=== PATIENT | female | born 1970 | race Caucasian/White ===

== ENCOUNTER → 2016-11-16 | Outpatient (REF) | payer OTHER | LOC: M LAB REF 13:53 | PROVIDERS: ATTEND Internal Medicine Gastroenterology | DX: K51.90 Ulcerative colitis, unspecified, without complications (principal); R10.9 Unspecified abdominal pain ==

== ENCOUNTER → 2017-01-18 | Outpatient (REF) | payer OTHER ==
[2017-01-18 13:12] LABS: MEAN CORPUSCULAR HEMOGLOBIN 29.6 pg (27.0-33.0); MEAN CORPUSCULAR HGB CONC 33.3 g/dl (32.0-36.5); RED CELL DISTRIBUTION WIDTH 12.6 % (11.5-14.5)
[2017-01-18 13:39] LABS: ALBUMIN 3.8 GM/DL (3.2-5.2); ALBUMIN/GLOBULIN RATIO 1.12 (1.00-1.93); ALKALINE PHOSPHATASE 86 U/L (45-117); ALT/SGPT 21 U/L (12-78); ANION GAP 7 MEQ/L (8-16); AST/SGOT 19 U/L (15-37); BILIRUBIN,TOTAL 0.6 MG/DL (0.2-1.0); BLOOD UREA NITROGEN 12 MG/DL (7-18); CALCIUM LEVEL 9.2 MG/DL (8.5-10.1); CARBON DIOXIDE LEVEL 26 MEQ/L (21-32); CHLORIDE LEVEL 105 MEQ/L (98-107); CREATININE FOR GFR 0.59 MG/DL (0.55-1.02); GLOMERULAR FILTRATION RATE > 60.0 (>58); GLUCOSE, FASTING 92 MG/DL (70-105); POTASSIUM SERUM 4.3 MEQ/L (3.5-5.1); SODIUM LEVEL 138 MEQ/L (136-145); TOTAL PROTEIN 7.2 GM/DL (6.4-8.2)
== END ==
LOC: M SFHCPLAZ 10:19
PROVIDERS: ATTEND Nurse Practitioner Adult Health
DX: Z00.00 Encounter for general adult medical examination without abnormal findings (principal); E55.9 Vitamin D deficiency, unspecified

== ENCOUNTER → 2017-03-05 | Outpatient (CLI) | payer OTHER ==
[2017-03-05 14:16] LABS: BASO % 0.8 % (0.0-1.0); EOS # 0.2 K/mm3 (0.0-0.50); EOS % 3.3 % (0.0-3.0); LARGE UNSTAINED CELL # 0.1 K/mm3 (0.0-0.4); LYMPH # 1.2 K/mm3 (1.5-4.5); LYMPH % 22.1 % (24.0-44.0); MEAN CORPUSCULAR HEMOGLOBIN 29.4 pg (27.0-33.0); MEAN CORPUSCULAR VOLUME 89.1 fl (80.0-96.0); MONO # 0.4 K/mm3 (0.0-0.8); MONO % 7.1 % (0.0-5.0); NEUTROPHILS # 3.3 K/mm3 (1.8-7.7); NEUTROPHILS % 65.8 % (36.0-66.0); PLATELET COUNT, AUTOMATED 259 k/mm3 (150-450); RED CELL DISTRIBUTION WIDTH 12.7 % (11.5-14.5)
[2017-03-05 14:53] LABS: ALBUMIN 3.5 GM/DL (3.2-5.2); ALBUMIN/GLOBULIN RATIO 0.97 (1.00-1.93); ALKALINE PHOSPHATASE 85 U/L (45-117); ALT/SGPT 24 U/L (12-78); ANION GAP 9 MEQ/L (8-16); AST/SGOT 20 U/L (15-37); BILIRUBIN,TOTAL 0.6 MG/DL (0.2-1.0); BLOOD UREA NITROGEN 10 MG/DL (7-18); CALCIUM LEVEL 8.5 MG/DL (8.5-10.1); CARBON DIOXIDE LEVEL 25 MEQ/L (21-32); CHLORIDE LEVEL 107 MEQ/L (98-107); CREATININE FOR GFR 0.51 MG/DL (0.55-1.02); GLOMERULAR FILTRATION RATE > 60.0 (>58); GLUCOSE, FASTING 83 MG/DL (70-105); POTASSIUM SERUM 4.1 MEQ/L (3.5-5.1); SODIUM LEVEL 141 MEQ/L (136-145); TOTAL PROTEIN 7.1 GM/DL (6.4-8.2)
[2017-03-08 00:06] LABS: Lyme Disease IgG Ab 18 kDa Ban Present (.); Lyme Disease IgG Ab 23 kDa Ban Present (.); Lyme Disease IgG Ab 28 kDa Ban Absent (.); Lyme Disease IgG Ab 30 kDa Ban Present (.); Lyme Disease IgG Ab 39 kDa Ban Present (.); Lyme Disease IgG Ab 41 kDa Ban Present (.); Lyme Disease IgG Ab 45 kDa Ban Present (.); Lyme Disease IgG Ab 58 kDa Ban Present (.); Lyme Disease IgG Ab 66 kDa Ban Present (.); Lyme Disease IgG Ab 93 kDa Ban Absent (.); Lyme Disease IgG West Blot Int Positive (.); Lyme Disease IgG/IgM Antibodie 1.76 ISR (0.00-0.90); Lyme Disease IgM Ab 23 kDa Ban Present (.); Lyme Disease IgM Ab 39 kDa Ban Present (.); Lyme Disease IgM Ab 41 kDa Ban Present (.); Lyme Disease IgM Ab Quantitati 5.02 index (0.00-0.79); Lyme Disease IgM West Blot Int Positive (.)
== END ==
LOC: M WUC 10:07
PROVIDERS: ATTEND Physician Assistant
DX: M79.602 Pain in left arm (principal)

== ENCOUNTER 2017-09-15 11:05 | Day surgery (SDC) | payer OTHER ==
[2017-09-15] MEDS: NS 1,000 ML IV ×2 (11:15→11:35)
[2017-09-15] MEDS ORDERED: PROPOFOL 200 MG/20 ML VIAL As Ordered (12:22)
== END 2017-09-15 13:17 | disposition home or self-care (01) ==
LOC: M OPP 11:05
DX: K51.90 Ulcerative colitis, unspecified, without complications (principal); K50.90 Crohn's disease, unspecified, without complications; R10.9 Unspecified abdominal pain; R19.7 Diarrhea, unspecified; K64.0 First degree hemorrhoids; R00.8 Other abnormalities of heart beat; G43.909 Migraine, unspecified, not intractable, without status migrainosus; J45.909 Unspecified asthma, uncomplicated; R06.83 Snoring; Z79.899 Other long term (current) drug therapy; Z79.52 Long term (current) use of systemic steroids
CPT/HCPCS: 45380

== ENCOUNTER → 2017-09-16 | Outpatient (CLI) | payer OTHER ==
[2017-09-16 17:39] LABS: HEMOGLOBIN 13.5 g/dl (12.0-16.0); MEAN CORPUSCULAR HEMOGLOBIN 28.1 pg (27.0-33.0); MEAN CORPUSCULAR HGB CONC 31.4 g/dl (32.0-36.5); MEAN CORPUSCULAR VOLUME 89.4 fl (80.0-96.0); PLATELET COUNT, AUTOMATED 320 10^3/uL (150-450); RED BLOOD COUNT 4.81 10^6/uL (4.00-5.40); RED CELL DISTRIBUTION WIDTH 13.3 % (11.5-14.5); WHITE BLOOD COUNT 7.4 10^3/uL (4.0-10.0)
[2017-09-16 17:44] LABS: ALBUMIN 3.5 GM/DL (3.2-5.2); ALBUMIN/GLOBULIN RATIO 1.06 (1.00-1.93); ALKALINE PHOSPHATASE 73 U/L (45-117); ALT/SGPT 17 U/L (12-78); ANION GAP 8 MEQ/L (8-16); AST/SGOT 11 U/L (7-37); BILIRUBIN,DIRECT < 0.1 MG/DL (0.0-0.2); BILIRUBIN,TOTAL 0.3 MG/DL (0.2-1.0); BLOOD UREA NITROGEN 9 MG/DL (7-18); CALCIUM LEVEL 8.8 MG/DL (8.5-10.1); CARBON DIOXIDE LEVEL 27 MEQ/L (21-32); CHLORIDE LEVEL 105 MEQ/L (98-107); CREATININE FOR GFR 0.69 MG/DL (0.55-1.30); GLOMERULAR FILTRATION RATE > 60.0 (>58); GLUCOSE, FASTING 79 MG/DL (70-100); POTASSIUM SERUM 4.2 MEQ/L (3.5-5.1); SODIUM LEVEL 140 MEQ/L (136-145); TOTAL PROTEIN 6.8 GM/DL (6.4-8.2)
== END ==
LOC: M WUC 09:16
DX: K51.90 Ulcerative colitis, unspecified, without complications (principal); R10.13 Epigastric pain; R10.9 Unspecified abdominal pain

== ENCOUNTER → 2017-09-19 | Outpatient (CLI) | payer OTHER ==
[~2017-09-19] MED LIST: GASTROGRAFIN SOLUTION 30ML (Q9963) As Ordered; ISOVUE-370 76% 100ML VIAL (Q9967) As Ordered
== END ==
LOC: M RAD 16:26
DX: K51.90 Ulcerative colitis, unspecified, without complications (principal); R10.13 Epigastric pain; K57.30 Diverticulosis of large intestine without perforation or abscess without bleeding; D73.4 Cyst of spleen
CPT/HCPCS: Q9963

== ENCOUNTER → 2017-09-20 | Outpatient (CLI) | payer OTHER | LOC: M RAD 06:59 | DX: R10.13 Epigastric pain (principal); K51.90 Ulcerative colitis, unspecified, without complications | CPT/HCPCS: 76705 ==

== ENCOUNTER 2017-11-01 11:50 | Day surgery (SDC) | payer OTHER ==
[~2017-11-01 11:50] MED LIST changes: -GASTROGRAFIN SOLUTION 30ML (Q9963) As Ordered; -ISOVUE-370 76% 100ML VIAL (Q9967) As Ordered; +LIDOCAINE 2% MDV 20 ML VIAL As Ordered; +PROPOFOL 200 MG/20 ML VIAL As Ordered
== END 2017-11-01 13:10 | disposition home or self-care (01) ==
LOC: M OPP 11:50
DX: R10.13 Epigastric pain (principal); R00.8 Other abnormalities of heart beat; K51.90 Ulcerative colitis, unspecified, without complications; K50.90 Crohn's disease, unspecified, without complications; G43.909 Migraine, unspecified, not intractable, without status migrainosus; J45.909 Unspecified asthma, uncomplicated; R06.83 Snoring; Z86.19 Personal history of other infectious and parasitic diseases; Z79.899 Other long term (current) drug therapy
CPT/HCPCS: 43239

== ENCOUNTER → 2019-07-06 | Outpatient (CLI) | payer OTHER ==
[~2019-07-06] MED LIST changes: +BENT10CA PO; +CALC500T49 PO; +GLUC1CAP10 PO; +LIAL1.2T PO; -LIDOCAINE 2% MDV 20 ML VIAL As Ordered; +MULT1TAB10 PO; +OMEP40CA97 PO; +PRED10TA2 PO; -PROPOFOL 200 MG/20 ML VIAL As Ordered; +VITA500046 PO; +VITA500T PO
--- NOTE | 2019-07-06 09:28 | REP ---
Clinical: Pain . Technique: AP, lateral, bilateral oblique views of the right elbow. Findings: No definite acute fractures appreciated. However, there is subtle elevation to the anterior fat pad suggesting the possibility of underlying occult injury. Clinical correlation and follow up is recommended. Impression: Elevation to the anterior fat pad without obvious acute fracture. Findings suggest possible occult injury. Electronically Signed by Jose Luis Cook MD 07/06/2019 09:19 A
== END ==
LOC: M WUC 09:09
PROVIDERS: ATTEND Physician Assistant
DX: M25.521 Pain in right elbow (principal)

== ENCOUNTER → 2020-02-24 | Outpatient (REF) | payer OTHER ==
[~2020-02-24] MED LIST changes: +VITA-243 PO; -VITA500T PO
[2020-04-20 23:31] LABS: ALBUMIN 3.7 GM/DL (3.2-5.2); ALT/SGPT 22 U/L (12-78); BILIRUBIN,TOTAL 0.3 MG/DL (0.2-1.0); BLOOD UREA NITROGEN 11 MG/DL (7-18); CALCIUM LEVEL 9.9 MG/DL (8.5-10.1); CARBON DIOXIDE LEVEL 28 MEQ/L (21-32); CHLORIDE LEVEL 105 MEQ/L (98-107); CREATININE FOR GFR 0.68 MG/DL (0.55-1.30); GLOMERULAR FILTRATION RATE > 60.0 (>51); GLUCOSE, FASTING 81 MG/DL (70-100); POTASSIUM SERUM 4.6 MEQ/L (3.5-5.1); SODIUM LEVEL 137 MEQ/L (136-145); TOTAL PROTEIN 7.4 GM/DL (6.4-8.2)
== END ==
LOC: M PLALAB 15:18
PROVIDERS: ATTEND Internal Medicine Gastroenterology
DX: Z00.00 Encounter for general adult medical examination without abnormal findings (principal); Z13.9 Encounter for screening, unspecified

== ENCOUNTER → 2020-11-12 | Outpatient (CLI) | payer OTHER ==
--- NOTE | 2020-11-12 16:09 | REPPI ---
INDICATION: J45.21 EXACERBATION OF INTERMITTENT ASTHMA. COMPARISON: Comparison chest x-ray is from November 05, 2007. TECHNIQUE: Two views.. FINDINGS: The lungs are well inflated and free of infiltrate. The pleural angles are sharp. The heart size is normal. Pulmonary vasculature is not increased. No significant bony abnormality is seen. IMPRESSION: Negative chest x-ray. <Electronically signed by Enrrique Lui > 11/12/20 [id number]
== END ==
LOC: M PLAIMG 15:32
PROVIDERS: ATTEND Physician Assistant
DX: J45.21 Mild intermittent asthma with (acute) exacerbation (principal)

== ENCOUNTER → 2022-02-03 | Outpatient (CLI) | payer OTHER ==
[~2022-02-03] MED LIST changes: +OMEP40CA4 PO; -OMEP40CA97 PO
== END ==
LOC: M PLAIMG 08:49
PROVIDERS: ATTEND Nurse Practitioner Adult Health
DX: M54.2 Cervicalgia (principal)

== ENCOUNTER → 2022-09-14 | Outpatient (CLI) | payer OTHER | LOC: M WUC 15:43 | PROVIDERS: ATTEND Physician Assistant | DX: J20.9 Acute bronchitis, unspecified (principal); J45.21 Mild intermittent asthma with (acute) exacerbation ==

== ENCOUNTER → 2022-12-19 | Outpatient (REF) | payer OTHER | LOC: M LAB REF 10:17 | PROVIDERS: ATTEND Internal Medicine Gastroenterology | DX: R19.7 Diarrhea, unspecified (principal) ==

== ENCOUNTER 2022-12-23 10:07 | Emergency (ER) | payer OTHER ==
[~2022-12-23] VITALS: Ht 167.6 cm; Wt 74.6 kg
[2022-12-23] MEDS ORDERED: NS 1,000 ML IV ONE (11:55)
[2022-12-23] MEDS ORDERED: ONDANSETRON 4MG 2ML VIAL IV ONE (11:55)
[2022-12-23] MEDS ORDERED: ISOVUE-370 76% 100ML VIAL As Ordered ONE (12:57)
[2022-12-23] MEDS ORDERED: KCL 10MEQ/100ML SWI (KRUN) 10 MEQ in IV 1 EA IV ONE (13:00)
[2022-12-23 13:08] LABS: HEMATOCRIT 40.5 % (36.0-47.0); HEMOGLOBIN 12.9 g/dl (12.0-15.5); MEAN CORPUSCULAR HEMOGLOBIN 27.6 pg (27.0-33.0); MEAN CORPUSCULAR HGB CONC 31.9 g/dl (32.0-36.5); MEAN CORPUSCULAR VOLUME 86.5 fl (80.0-96.0); PLATELET COUNT, AUTOMATED 428 10^3/uL (150-450); RED BLOOD COUNT 4.68 10^6/uL (4.00-5.40); WHITE BLOOD COUNT 8.4 10^3/uL (4.0-10.0)
[2022-12-23] MEDS ORDERED: methylPREDNISolone 125MG 2ML VIAL IV ONE (13:15)
[2022-12-23 13:36] LABS: ALBUMIN 2.8 G/DL (3.2-5.2); BILIRUBIN,DIRECT 0.1 MG/DL (<0.4); BILIRUBIN,TOTAL 0.5 MG/DL (0.3-1.2); TOTAL PROTEIN 6.8 G/DL (5.7-8.2)
[2022-12-23 14:01] LABS: ATYPICAL LYMPH 4 % (0-5); BASOPHILS 1 % (0-1); EOSINOPHILS 1 % (0-3); LYMPHOCYTES 21 % (16-44); MONOCYTES 10 % (0-5); NEUTROPHILS 56 % (28-66)
[2022-12-23 14:02] LABS: PLATELET ESTIMATE INCREASED (NORMAL)
[2022-12-23 16:14] VITALS: BP 128/73; TEMP 97.5; O2SAT 94
== END 2022-12-23 16:29 | disposition home or self-care (01) ==
LOC: M ED 10:07
DX: K51.90 Ulcerative colitis, unspecified, without complications (principal); E86.0 Dehydration; Z79.899 Other long term (current) drug therapy; Z79.52 Long term (current) use of systemic steroids
CPT/HCPCS: 74177; 80047; 80076; 81001; 83605; 83690; 84702; 85025; 87040; 96365; 96366; 96375; 99284; J2405; J2930; Q9967

== ENCOUNTER → 2023-01-20 | Outpatient (CLI) | payer OTHER ==
[~2023-01-20] VITALS: Ht 165.1 cm; Wt 72.0 kg
[~2023-01-20] MED LIST changes: +NS 1,000 ML IV SCH; +diphenhydrAMINE 25MG PO PRIOR TO INFUSION PO ONE; +inFLIXimab INJECTION 400 MG in NS 210 ML IV ONE
[2023-01-20 09:52] VITALS: BP 129/80; TEMP 98.1; O2SAT 94
[2023-01-20 10:30] VITALS: BP 109/69; TEMP 98.1; O2SAT 98
[2023-01-20 12:15] VITALS: BP 121/63; O2SAT 97
== END ==
LOC: M INFU 09:04
PROVIDERS: ATTEND Internal Medicine Gastroenterology
DX: K51.90 Ulcerative colitis, unspecified, without complications (principal)
CPT/HCPCS: 96413; 96415; J1745

== ENCOUNTER 2023-02-03 09:35 | Outpatient (CLI) | payer OTHER ==
[~2023-02-03] VITALS: Ht 167.6 cm; Wt 71.7 kg
[2023-02-03] VITALS (9 sets, daily range): BP systolic 108–122; BP diastolic 58–80; TEMP 97–97.9; O2SAT 97–100
[~2023-02-03 09:35] MED LIST changes: -inFLIXimab INJECTION 400 MG in NS 210 ML IV ONE
[2023-02-03] MEDS ORDERED: inFLIXimab INJECTION 400 MG in NS 210 ML IV ONE (09:45)
== END 2023-02-03 12:55 | disposition home or self-care (01) ==
LOC: M INFU 09:35
PROVIDERS: ATTEND Internal Medicine Gastroenterology
DX: K51.90 Ulcerative colitis, unspecified, without complications (principal)
CPT/HCPCS: 96413; 96415; J1745

== ENCOUNTER 2023-03-17 09:30 | Outpatient (CLI) | payer OTHER ==
[~2023-03-17] VITALS: Ht 165.1 cm; Wt 73.0 kg
[~2023-03-17 09:30] MED LIST changes: +CURRENT HEIGHT AND WEIGHT NEEDED ON PATIENT XX SCH; +diphenhydrAMINE 25MG CAP PO ONE; -diphenhydrAMINE 25MG PO PRIOR TO INFUSION PO ONE
[2023-03-17 09:35] VITALS: BP 119/73; TEMP 97.4; O2SAT 99
[2023-03-17] MEDS ORDERED: inFLIXimab INJECTION 400 MG in NS 210 ML IV ONE (09:45)
[2023-03-17 11:00] VITALS: BP 112/73; TEMP 98.4; O2SAT 100
[2023-03-17 11:15] VITALS: BP 112/73; TEMP 98.4; O2SAT 100
[2023-03-17 11:30] VITALS: BP 118/73; TEMP 98.2; O2SAT 100
[2023-03-17 11:45] VITALS: BP 122/74; O2SAT 100
[2023-03-17 12:15] VITALS: BP 125/74; O2SAT 98
== END 2023-03-17 12:45 ==
LOC: M INFU 09:30
PROVIDERS: ATTEND Internal Medicine Gastroenterology
DX: K51.90 Ulcerative colitis, unspecified, without complications (principal)
CPT/HCPCS: 96413; 96415; J1745

== ENCOUNTER 2023-05-12 09:20 | Outpatient (CLI) | payer OTHER ==
[~2023-05-12] VITALS: Ht 167.6 cm; Wt 75.0 kg
[~2023-05-12 09:20] MED LIST changes: -CURRENT HEIGHT AND WEIGHT NEEDED ON PATIENT XX SCH; -NS 1,000 ML IV SCH; -diphenhydrAMINE 25MG CAP PO ONE
[2023-05-12 09:30] VITALS: BP 127/82; O2SAT 97
[2023-05-12] MEDS ORDERED: NS 1,000 ML IV SCH (09:30)
[2023-05-12] MEDS ORDERED: inFLIXimab INJECTION 400 MG in NS 210 ML IV ONE (09:30)
[2023-05-12] MEDS ORDERED: diphenhydrAMINE 25MG PO PRIOR TO INFUSION PO ONE (09:30)
[2023-05-12 10:30] VITALS: BP 121/68; O2SAT 97
[2023-05-12 11:15] VITALS: BP 122/75; O2SAT 98
[2023-05-12 12:00] VITALS: BP 126/70; O2SAT 99
[2023-05-12 12:32] VITALS: BP 118/64; O2SAT 99
== END 2023-05-12 12:35 ==
LOC: M INFU 09:20
PROVIDERS: ATTEND Internal Medicine Gastroenterology
DX: K51.90 Ulcerative colitis, unspecified, without complications (principal)
CPT/HCPCS: 96413; 96415; J1745

== ENCOUNTER 2023-07-07 09:35 | Outpatient (CLI) | payer OTHER ==
[~2023-07-07] VITALS: Ht 167.6 cm; Wt 75.0 kg
[2023-07-07 09:30] VITALS: BP 134/45; O2SAT 97
[2023-07-07] MEDS ORDERED: diphenhydrAMINE 25MG PO PRIOR TO INFUSION PO ONE (10:00)
[2023-07-07] MEDS ORDERED: inFLIXimab INJECTION 400 MG in NS 210 ML IV ONE (10:00)
[2023-07-07] MEDS ORDERED: NS 1,000 ML IV SCH (10:00)
[2023-07-07 10:45] VITALS: BP 122/71; O2SAT 100
[2023-07-07 11:24] VITALS: BP 133/82; O2SAT 99
[2023-07-07 11:25] VITALS: BP 133/82; TEMP 36.4; O2SAT 99
== END 2023-07-07 11:25 | disposition home or self-care (01) ==
LOC: M INFU 09:35
PROVIDERS: ATTEND Internal Medicine Gastroenterology
DX: R53.83 Other fatigue (principal)
CPT/HCPCS: 96413; J1745

== ENCOUNTER 2023-09-04 10:57 | Day surgery (SDC) | payer OTHER ==
[~2023-09-04] VITALS: Ht 167.6 cm; Wt 70.7 kg
[~2023-09-04 10:57] MED LIST changes: +DICY-61 PO; +INFL10VL IV; +LIDOCAINE 2% 100MG/5ML SDV (FOR ANES.) As Ordered ONE; +fentaNYL 100 MCG/2 ML INJECTION As Ordered ONE; +propofoL 500 MG/50 ML VIAL As Ordered ONE
[2023-09-04] MEDS: NS 1,000 ML IV ONE (11:16)
[2023-09-04 12:17] VITALS: TEMP 97.6
[2023-09-04 12:34] VITALS: BP 111/66; O2SAT 100
== END 2023-09-04 12:44 | disposition home or self-care (01) ==
LOC: M OPP 10:57
PROVIDERS: ATTEND Internal Medicine Gastroenterology
DX: K64.0 First degree hemorrhoids (principal); K51.40 Inflammatory polyps of colon without complications; K63.89 Other specified diseases of intestine; K29.50 Unspecified chronic gastritis without bleeding; K31.89 Other diseases of stomach and duodenum; G47.9 Sleep disorder, unspecified; Z79.620 Long term (current) use of immunosuppressive biologic; Z79.891 Long term (current) use of opiate analgesic; Z79.899 Other long term (current) drug therapy
CPT/HCPCS: 43239; 45380; 88305; J3010

== ENCOUNTER 2023-10-04 08:50 | Outpatient (CLI) | payer OTHER ==
[~2023-10-04] VITALS: Ht 167.6 cm; Wt 72.7 kg
[~2023-10-04 08:50] MED LIST changes: -LIDOCAINE 2% 100MG/5ML SDV (FOR ANES.) As Ordered ONE; -fentaNYL 100 MCG/2 ML INJECTION As Ordered ONE; -propofoL 500 MG/50 ML VIAL As Ordered ONE
[2023-10-04 09:00] VITALS: BP 121/73; O2SAT 97
[2023-10-04] MEDS ORDERED: NS 1,000 ML IV SCH (09:00)
[2023-10-04] MEDS: ACETAMINOPHEN 650MG PO PRIOR TO INFUSION PO ONE (09:13)
[2023-10-04] MEDS: diphenhydrAMINE 25MG PO PRIOR TO INFUSION PO ONE (09:13)
[2023-10-04] MEDS: INFLIXIMAB BIOSIMILAR 400 MG in NS 210 ML IV ONE (09:34)
[2023-10-04 09:55] VITALS: BP 109/69; O2SAT 97
[2023-10-04 10:45] VITALS: BP 130/77; O2SAT 99
== END 2023-10-04 10:45 ==
LOC: M INFU 08:50
PROVIDERS: ATTEND Internal Medicine Gastroenterology
DX: K51.919 Ulcerative colitis, unspecified with unspecified complications (principal)

== ENCOUNTER → 2023-10-20 | Outpatient (CLI) | payer OTHER | LOC: M WUC 09:40 | PROVIDERS: ATTEND Physician Assistant | DX: R10.812 Left upper quadrant abdominal tenderness (principal) ==

== ENCOUNTER → 2023-11-09 | Outpatient (CLI) | payer OTHER | LOC: M RAD 09:03 | PROVIDERS: ATTEND Physician Assistant | DX: R10.812 Left upper quadrant abdominal tenderness (principal) ==

== ENCOUNTER 2023-11-29 09:02 | Outpatient (CLI) | payer OTHER ==
[~2023-11-29] VITALS: Ht 167.6 cm; Wt 72.7 kg
[~2023-11-29 09:02] MED LIST changes: +NS 1,000 ML IV SCH
[2023-11-29 09:15] VITALS: BP 119/66; O2SAT 100
[2023-11-29] MEDS: ACETAMINOPHEN 650MG PO PRIOR TO INFUSION PO ONE (09:22)
[2023-11-29] MEDS: diphenhydrAMINE 25MG PO PRIOR TO INFUSION PO ONE (09:22)
[2023-11-29] MEDS: INFLIXIMAB BIOSIMILAR 400 MG in NS 210 ML IV ONE (10:02)
[2023-11-29 11:20] VITALS: BP 136/84; O2SAT 100
== END 2023-11-29 11:20 ==
LOC: M INFU 09:02
PROVIDERS: ATTEND Internal Medicine Gastroenterology
DX: K51.90 Ulcerative colitis, unspecified, without complications (principal)

== ENCOUNTER → 2023-12-08 | Outpatient (REF) | payer OTHER ==
[~2023-12-08] MED LIST changes: -NS 1,000 ML IV SCH
[2023-12-08 14:20] LABS: URIC ACID 3.6 MG/DL (3.1-7.8)
[2023-12-08 14:22] LABS: C REACTIVE PROTEIN QUANTITATIV < 0.40 MG/DL (<1.0)
[2023-12-08 14:23] LABS: RHEUMATOID FACTOR QUANT 6.5 IU/ML (<14)
== END ==
LOC: M LAB REF 13:03
PROVIDERS: ATTEND Internal Medicine
DX: K51.90 Ulcerative colitis, unspecified, without complications (principal); M15.9 Polyosteoarthritis, unspecified

== ENCOUNTER → 2023-12-25 | Outpatient (CLI) | payer OTHER | LOC: M WHC 13:34 | PROVIDERS: ATTEND Internal Medicine | DX: M81.0 Age-related osteoporosis without current pathological fracture (principal) ==

== ENCOUNTER → 2024-01-23 | Outpatient (CLI) | payer OTHER ==
[~2024-01-23] MED LIST changes: +PROHANCE 279.3MG/ML 15ML VIAL ONE
== END ==
LOC: M PLAIMG 12:50
PROVIDERS: ATTEND Internal Medicine
DX: R10.12 Left upper quadrant pain (principal)

== ENCOUNTER → 2024-01-24 | Outpatient (CLI) | payer OTHER ==
[~2024-01-24] VITALS: Ht 167.6 cm; Wt 72.7 kg
[~2024-01-24] MED LIST changes: +NS 1,000 ML IV SCH; -PROHANCE 279.3MG/ML 15ML VIAL ONE
[2024-01-24 09:35] VITALS: BP 140/66; O2SAT 100
[2024-01-24] MEDS: diphenhydrAMINE 25MG CAP PO ONE (10:11)
[2024-01-24] MEDS: ACETAMINOPHEN TAB 650MG DOSE (2X325MG) PO ONE (10:11)
[2024-01-24] MEDS: INFLIXIMAB BIOSIMILAR 400 MG in NS 210 ML IV ONE (10:12)
[2024-01-24 11:40] VITALS: BP 138/78; O2SAT 100
== END ==
LOC: M INFU 09:27
PROVIDERS: ATTEND Internal Medicine Gastroenterology
DX: K51.90 Ulcerative colitis, unspecified, without complications (principal)

== ENCOUNTER 2024-03-20 09:11 | Outpatient (CLI) | payer OTHER ==
[~2024-03-20] VITALS: Ht 167.6 cm; Wt 75.0 kg
[~2024-03-20 09:11] MED LIST changes: -NS 1,000 ML IV SCH
[2024-03-20 09:25] VITALS: BP 126/75; O2SAT 98
[2024-03-20] MEDS ORDERED: diphenhydrAMINE 25MG PO PRIOR TO INFUSION PO ONE (09:30)
[2024-03-20] MEDS ORDERED: ACETAMINOPHEN 650MG PO PRIOR TO INFUSION PO ONE (09:30)
[2024-03-20] MEDS ORDERED: NS 1,000 ML IV SCH (09:30)
[2024-03-20] MEDS: INFLIXIMAB BIOSIMILAR 400 MG in NS 210 ML IV ONE (10:08)
[2024-03-20 11:15] VITALS: BP 133/75; O2SAT 99
== END 2024-03-20 11:15 ==
LOC: M INFU 09:11
PROVIDERS: ATTEND Internal Medicine Gastroenterology
DX: K51.90 Ulcerative colitis, unspecified, without complications (principal)

== ENCOUNTER 2024-05-15 09:39 | Outpatient (CLI) | payer OTHER ==
[~2024-05-15] VITALS: Ht 167.6 cm; Wt 75.0 kg
[~2024-05-15 09:39] MED LIST changes: +ACETAMINOPHEN 650MG PO PRIOR TO INFUSION PO ONE; +NS 1,000 ML IV SCH; +NS 250 ML IV SCH; +diphenhydrAMINE 25MG PO PRIOR TO INFUSION PO ONE
[2024-05-15 09:40] VITALS: BP 138/87; O2SAT 99
[2024-05-15] MEDS: diphenhydrAMINE 25MG PO PRIOR TO INFUSION PO ONE (09:56)
[2024-05-15] MEDS: ACETAMINOPHEN 650MG PO PRIOR TO INFUSION PO ONE (09:56)
[2024-05-15] MEDS: INFLIXIMAB BIOSIMILAR 400 MG in NS 210 ML IV ONE (10:25)
[2024-05-15 10:45] VITALS: BP 108/58; O2SAT 98
[2024-05-15 11:29] VITALS: BP 126/67; O2SAT 99
== END 2024-05-15 11:30 ==
LOC: M INFU 09:39
PROVIDERS: ATTEND Internal Medicine Gastroenterology
DX: K51.90 Ulcerative colitis, unspecified, without complications (principal)

== ENCOUNTER 2024-07-11 09:46 | Outpatient (CLI) | payer OTHER ==
[~2024-07-11] VITALS: Ht 167.6 cm; Wt 77.3 kg
[~2024-07-11 09:46] MED LIST changes: -ACETAMINOPHEN 650MG PO PRIOR TO INFUSION PO ONE; -NS 1,000 ML IV SCH; -NS 250 ML IV SCH; -diphenhydrAMINE 25MG PO PRIOR TO INFUSION PO ONE
[2024-07-11 10:00] VITALS: BP 127/84; O2SAT 97
[2024-07-11] MEDS ORDERED: NS (Normal Saline) 0.9% 1,000 ML IV SCH (10:00)
[2024-07-11] MEDS ORDERED: diphenhydrAMINE 25MG PO PRIOR TO INFUSION PO ONE (10:00)
[2024-07-11] MEDS ORDERED: ACETAMINOPHEN 650MG PO PRIOR TO INFUSION PO ONE (10:00)
[2024-07-11] MEDS: INFLIXIMAB BIOSIMILAR 400 MG in NS 210 ML IV ONE (10:55)
[2024-07-11 11:17] VITALS: BP 123/72; O2SAT 98
[2024-07-11 12:00] VITALS: BP 140/88; O2SAT 100
== END 2024-07-11 12:00 ==
LOC: M INFU 09:46
PROVIDERS: ATTEND Internal Medicine Gastroenterology
DX: K51.90 Ulcerative colitis, unspecified, without complications (principal)

== ENCOUNTER 2024-09-05 10:23 | Outpatient (CLI) | payer OTHER ==
[~2024-09-05] VITALS: Ht 167.6 cm; Wt 77.3 kg
[2024-09-05] MEDS: diphenhydrAMINE 25MG PO PRIOR TO INFUSION PO ONE (10:00)
[2024-09-05] MEDS: ACETAMINOPHEN 650MG PO PRIOR TO INFUSION PO ONE (10:00)
[2024-09-05 10:30] VITALS: BP 142/89; O2SAT 99
[2024-09-05] MEDS: INFLIXIMAB BIOSIMILAR 400 MG in NS 210 ML IV ONE (11:14)
[2024-09-05 12:16] VITALS: BP 118/60; O2SAT 96
== END 2024-09-05 12:16 ==
LOC: M INFU 10:23
PROVIDERS: ATTEND Internal Medicine Gastroenterology
DX: K51.919 Ulcerative colitis, unspecified with unspecified complications (principal)

== ENCOUNTER → 2024-09-11 | Outpatient (REF) | payer OTHER | LOC: M LAB REF 13:12 | PROVIDERS: ATTEND Internal Medicine | DX: M06.4 Inflammatory polyarthropathy (principal) ==

== ENCOUNTER 2024-10-31 09:42 | Outpatient (CLI) | payer OTHER ==
[~2024-10-31] VITALS: Ht 167.6 cm; Wt 77.3 kg
[2024-10-31] MEDS ORDERED: NS (Normal Saline) 0.9% 1,000 ML IV SCH (10:00)
[2024-10-31 10:06] VITALS: BP 122/77; O2SAT 94
[2024-10-31] MEDS: INFLIXIMAB BIOSIMILAR 400 MG in NS 210 ML IV ONE (10:34)
[2024-10-31] MEDS: ACETAMINOPHEN 650MG PO PRIOR TO INFUSION PO ONE (10:34)
[2024-10-31] MEDS: diphenhydrAMINE 25MG PO PRIOR TO INFUSION PO ONE (10:34)
[2024-10-31 11:45] VITALS: BP 128/68; O2SAT 100
== END 2024-10-31 11:55 | disposition home or self-care (01) ==
LOC: M INFU 09:42
PROVIDERS: ATTEND Internal Medicine Gastroenterology
DX: K51.90 Ulcerative colitis, unspecified, without complications (principal)
CPT/HCPCS: 96413; Q5103

== ENCOUNTER 2025-02-19 10:01 | Outpatient (CLI) | payer OTHER ==
[~2025-02-19] VITALS: Ht 167.6 cm; Wt 77.2 kg
[~2025-02-19 10:01] MED LIST changes: +NS (Normal Saline) 0.9% 1,000 ML IV SCH
[2025-02-19 10:05] VITALS: BP 139/81; O2SAT 99
[2025-02-19] MEDS: diphenhydrAMINE 25MG PO PRIOR TO INFUSION PO ONE (10:49)
[2025-02-19] MEDS: ACETAMINOPHEN 650MG PO PRIOR TO INFUSION PO ONE (10:49)
[2025-02-19] MEDS: INFLIXIMAB BIOSIMILAR 400 MG in NS 210 ML IV ONE (10:50)
[2025-02-19 11:50] VITALS: BP 136/79; O2SAT 100
== END 2025-02-19 11:50 ==
LOC: M INFU 10:01
PROVIDERS: ATTEND Internal Medicine Gastroenterology
DX: K51.90 Ulcerative colitis, unspecified, without complications (principal)
CPT/HCPCS: 96413; Q5103

== ENCOUNTER → 2025-04-02 | Outpatient (REF) | payer OTHER ==
[~2025-04-02] MED LIST changes: -NS (Normal Saline) 0.9% 1,000 ML IV SCH
== END ==
LOC: M LAB REF 11:52
PROVIDERS: ATTEND Internal Medicine
DX: M06.4 Inflammatory polyarthropathy (principal); Z82.49 Family history of ischemic heart disease and other diseases of the circulatory system

== ENCOUNTER 2025-04-21 10:37 | Outpatient (CLI) | payer OTHER ==
[~2025-04-21] VITALS: Ht 167.6 cm; Wt 77.3 kg
[2025-04-21 10:45] VITALS: BP 146/82; O2SAT 98
[2025-04-21] MEDS ORDERED: NS (Normal Saline) 0.9% 1,000 ML IV SCH (11:00)
[2025-04-21] MEDS ORDERED: ACETAMINOPHEN 650MG PO PRIOR TO INFUSION PO ONE (11:00)
[2025-04-21] MEDS ORDERED: diphenhydrAMINE 25MG PO PRIOR TO INFUSION PO ONE (11:00)
[2025-04-21] MEDS: INFLIXIMAB BIOSIMILAR 400 MG in NS 210 ML IV ONE (12:05)
[2025-04-21 12:20] VITALS: BP 137/79; O2SAT 97
[2025-04-21 13:10] VITALS: BP 137/71; O2SAT 99
== END 2025-04-21 13:10 | disposition home or self-care (01) ==
LOC: M INFU 10:37
PROVIDERS: ATTEND Internal Medicine Gastroenterology
DX: K51.90 Ulcerative colitis, unspecified, without complications (principal)
CPT/HCPCS: 96413; Q5103

== ENCOUNTER 2025-06-16 10:56 | Outpatient (CLI) | payer OTHER ==
[~2025-06-16] VITALS: Ht 167.6 cm; Wt 77.3 kg
[2025-06-16 11:00] VITALS: BP 132/70; O2SAT 96
[2025-06-16] MEDS ORDERED: NS (Normal Saline) 0.9% 1,000 ML IV SCH (11:00)
[2025-06-16] MEDS ORDERED: ACETAMINOPHEN 650MG PO PRIOR TO INFUSION PO ONE (11:00)
[2025-06-16] MEDS ORDERED: diphenhydrAMINE 25MG PO PRIOR TO INFUSION PO ONE (11:00)
[2025-06-16] MEDS: INFLIXIMAB BIOSIMILAR 400 MG in NS 210 ML IV ONE (11:53)
[2025-06-16 13:00] VITALS: BP 134/87; O2SAT 100
== END 2025-06-16 13:00 | disposition home or self-care (01) ==
LOC: M INFU 10:56
PROVIDERS: ATTEND Internal Medicine Gastroenterology
DX: K51.90 Ulcerative colitis, unspecified, without complications (principal)
CPT/HCPCS: 96413; Q5103